=== PATIENT | female | born 1960 ===

== ENCOUNTER 2023-01-11 06:00 | Day surgery (SDC) | payer OTHER ==
[~2023-01-11] VITALS: Ht 167.6 cm; Wt 79.4 kg
[~2023-01-11 06:00] MED LIST: COZAAR100 MG PO; CYMBALTA60 MG PO; LIPITOR20 MG PO; NEXIUM40 M1 PO; NORVASC2.5 M1 PO; SYNJARDY 5-1,01 EACH PO; SYNTHROID75 MCG PO; TRAZODONE HCL100 MG PO
[2023-01-11] MEDS ORDERED: IBU600 MG PO (08:13)
== END 2023-01-11 13:10 | disposition home or self-care (01) ==
LOC: CIR.AMB 06:00
PROVIDERS: ATTEND Obstetrics & Gynecology Gynecology
DX: N84.0 Polyp of corpus uteri (principal); I10 Essential (primary) hypertension; E11.9 Type 2 diabetes mellitus without complications; Z79.84 Long term (current) use of oral hypoglycemic drugs